=== PATIENT | male | born 1940 | race Caucasian/White ===

== ENCOUNTER 2018-01-23 07:28 | Day surgery (SDC) | payer MEDICARE ==
[2018-01-23] MEDS ORDERED: Lactated Ringer's 1,000 ML IV ONE (11:15)
[2018-01-23] MEDS ORDERED: Propofol 10 mg/ml Inj (20 ML) ONE ×2 (11:20→12:02)
[2018-01-23 12:25] VITALS: TEMP 97.7; O2SAT 100
[2018-01-23 12:40] VITALS: RESP 15
[2018-01-23 13:00] VITALS: BP 105/49; PULSE 59
== END 2018-01-23 12:58 | disposition home or self-care (01) ==
LOC: C.ENDO 07:28
PROVIDERS: ATTEND Internal Medicine Gastroenterology
DX: D12.5 Benign neoplasm of sigmoid colon (principal); K59.00 Constipation, unspecified; D12.4 Benign neoplasm of descending colon; K64.8 Other hemorrhoids
CPT/HCPCS: 45388; 88305; J2704; J7120